=== PATIENT | male | born 1970 | race Caucasian/White ===

== ENCOUNTER 2017-06-19 13:21 | Emergency (ER) | payer BC ==
[~2017-06-19] VITALS: Ht 185.4 cm; Wt 110.0 kg
[~2017-06-19 13:21] MED LIST: ASPI1CPM9 PO; LISI40TA4 PO; ROSU20TA PO
[2017-06-19 14:50] VITALS: BP 144/106
[2017-06-19] MEDS ORDERED: LORazepam 1 MG tablet PO ONE (17:15)
[2017-06-19] MEDS ORDERED: CHLO1CAP PO (17:16)
== END 2017-06-19 17:28 | disposition home or self-care (01) ==
LOC: ER 13:22
DX: F10.239 Alcohol dependence with withdrawal, unspecified (principal); E78.00 Pure hypercholesterolemia, unspecified; I10 Essential (primary) hypertension; Z86.73 Personal history of transient ischemic attack (TIA), and cerebral infarction without residual deficits; Z88.8 Allergy status to other drugs, medicaments and biological substances; Z79.82 Long term (current) use of aspirin; Z79.899 Other long term (current) drug therapy; Y90.0 Blood alcohol level of less than 20 mg/100 ml
CPT/HCPCS: 99283

== ENCOUNTER 2020-09-30 20:43 | Emergency (ER) | payer BC, OTHER ==
[~2020-09-30] VITALS: Ht 185.4 cm; Wt 99.1 kg
[~2020-09-30 20:43] MED LIST changes: +CHLO1CAP PO; +LISI40TA13 PO; -LISI40TA4 PO; -ROSU20TA PO; +ROSU20TA2 PO
[2020-09-30 21:52] LABS: BASOPHILS % (AUTO) 0.8 % (0-1); EOSINOPHILS # (AUTO) 0.1 X10'3 (0-0.9); EOSINOPHILS % (AUTO) 1.3 % (0-6); HEMATOCRIT 45.2 % (42.0-52.0); HEMOGLOBIN 15.6 g/dl (14.0-17.9); LYMPHOCYTES # (AUTO) 1.3 X10'3 (1.1-4.8); LYMPHOCYTES % (AUTO) 21.6 % (21-51); MEAN CORPUSCULAR HEMOGLOBIN 29.2 PG (27.0-31.0); MEAN CORPUSCULAR HGB CONC 34.5 g/dL (33.0-36.5); MEAN CORPUSCULAR VOLUME 84.7 FL (78-98); MEAN PLATELET VOLUME 7.6 FL (7.4-10.4); MONOCYTES # (AUTO) 0.6 X10'3 (0-0.9); NEUTROPHILS # (AUTO) 3.9 X10'3 (1.8-7.7); NEUTROPHILS % (AUTO) 66.3 % (42-75); PLATELET COUNT 237 X10'3 (140-440); RED BLOOD COUNT 5.33 X10'6 (4.70-6.10); RED CELL DISTRIBUTION WIDTH 17.9 % (11.5-14.5); WHITE BLOOD COUNT 5.9 X10'3 (4.5-11.0)
[2020-09-30 22:00] LABS: ALANINE AMINOTRANSFERASE 54 U/L (12-78); ALBUMIN 3.5 G/DL (3.4-5.0); ALBUMIN/GLOBULIN RATIO 1.1 (1.1-1.5); ALKALINE PHOSPHATASE 61 IU/L (46-116); ANION GAP 7 (8-16); ASPARTATE AMINO TRANSFERASE 26 U/L (10-37); BILIRUBIN,TOTAL 0.4 MG/DL (0.1-1.0); BLOOD UREA NITROGEN 18 MG/DL (7-18); BUN/CREATININE RATIO 10.9 (5.4-32.0); CHLORIDE 104 MMOL/L (99-107); CREATININE 1.65 MG/DL (0.60-1.10); GLUCOSE 97 MG/DL (70-104); POTASSIUM 3.7 MMOL/L (3.5-5.1); SODIUM 138 MMOL/L (135-145); TOTAL CARBON DIOXIDE 26.9 MMOL/L (24-32); TOTAL PROTEIN 6.8 G/DL (6.4-8.2); eGFR 44 ML/MIN
[2020-09-30] MEDS ORDERED: LIDOcaine Viscous 15ml cup MM ONE (23:30)
[2020-09-30] MEDS ORDERED: mag hydrox/Alum hydrox/simeth 30ml oral suspension PO ONE (23:30)
[2020-09-30] MEDS ORDERED: ondansetron/PF 4mg/2ml inj IV ONE (23:30)
[2020-09-30] MEDS: pantoprazole 40 MG vial IV ONE (23:57)
[2020-10-01] MEDS ORDERED: pantoprazole 40 MG vial IV ONE (00:05)
[2020-10-01] MEDS: pantoprazole 40 MG vial IV ONE (00:06)
[2020-10-01] MEDS ORDERED: PANT-47 PO (00:09)
[2020-10-01 02:00] VITALS: BP 130/86
== END 2020-10-01 02:42 | disposition home or self-care (01) ==
LOC: ER 20:44
DX: K21.9 Gastro-esophageal reflux disease without esophagitis (principal); Z79.82 Long term (current) use of aspirin; Z79.899 Other long term (current) drug therapy; E78.00 Pure hypercholesterolemia, unspecified; I10 Essential (primary) hypertension; Z86.73 Personal history of transient ischemic attack (TIA), and cerebral infarction without residual deficits
CPT/HCPCS: 36415; 71045; 80053; 83880; 84484; 85025; 93005; 96374; 96375; 99285; C9113; J2405

== ENCOUNTER 2022-12-02 05:24 | Day surgery (SDC) | payer OTHER ==
[2022-11-27 15:38] LABS: BASOPHILS # (AUTO) 0.1 X10'3 (0-0.2); BASOPHILS % (AUTO) 0.8 % (0-1); EOSINOPHILS # (AUTO) 0.1 X10'3 (0-0.9); EOSINOPHILS % (AUTO) 1.4 % (0-6); LYMPHOCYTES # (AUTO) 1.9 X10'3 (1.1-4.8); MEAN CORPUSCULAR HEMOGLOBIN 30.7 PG (27.0-31.0); MEAN CORPUSCULAR HGB CONC 33.9 g/dL (33.0-36.5); MEAN CORPUSCULAR VOLUME 90.6 FL (78-98); MEAN PLATELET VOLUME 7.4 FL (7.4-10.4); MONOCYTES # (AUTO) 0.7 X10'3 (0-0.9); MONOCYTES % (AUTO) 9.7 % (2-12); NEUTROPHILS % (AUTO) 59.1 % (42-75); PRE OP HEMATOCRIT 43.3 % (42.0-52.0); PRE OP HEMOGLOBIN 14.7 g/dL (14.0-17.9); PRE OP PLATELET COUNT 229 X10'3 (140-440); PRE OP WHITE BLOOD COUNT 6.7 10'3 (4.8-10.8); RED BLOOD COUNT 4.78 X10'6 (4.70-6.10); RED CELL DISTRIBUTION WIDTH 13.3 % (11.5-14.5)
[2022-11-27 15:42] LABS: ALBUMIN 3.6 G/DL (3.4-5.0); ALKALINE PHOSPHATASE 76 IU/L (46-116); BLOOD UREA NITROGEN 26 MG/DL (7-18); BUN/CREATININE RATIO 19.7 (10.0-20.0); CALCIUM 9.6 MG/DL (8.5-10.1); CHLORIDE 104 MMOL/L (99-107); CREATININE 1.32 MG/DL (0.60-1.10); PRE OP ALT 43 U/L (30-65); PRE OP ANION GAP 10 (8-16); PRE OP AST 18 U/L (10-37); PRE OP BILIRUB, TOTAL 0.6 MG/DL (0.0-1.0); PRE OP GLUCOSE 104 MG/DL (70-104); PRE OP POTASSIUM 4.3 MMOL/L (3.4-5.1); PRE OP SODIUM 140 MMOL/L (135-145); TOTAL CARBON DIOXIDE 26.4 MMOL/L (24-32); TOTAL PROTEIN 7.2 G/DL (6.4-8.2); eGFR 57 ML/MIN
[~2022-12-02] VITALS: Ht 185.4 cm; Wt 94.6 kg
[2022-12-02] VITALS (9 sets, daily range): BP systolic 108–121; BP diastolic 66–87; PULSE 49–71; RESP 14–16; TEMP 97.9; O2SAT 97–100
[~2022-12-02 05:24] MED LIST changes: -ASPI1CPM9 PO; +ASPI81TA52 PO; -CHLO1CAP PO; +DABI150C PO; +LISI20TA28 PO; -LISI40TA13 PO; +PANT20TA18 PO; -ROSU20TA2 PO; +ringers solution, lacted 1,000 ML IV SCH
[2022-12-02] MEDS ORDERED: famotidine 20mg tablet PO ONE (05:30)
[2022-12-02] MEDS ORDERED: cefazolin 2gm/D5W 100mL 100 ML IV ONE (05:30)
[2022-12-02] MEDS ORDERED: BUPIVAcaine/PF 2.5 mg/ml (0.25%) 30ml vial IJ ONE (08:00)
[2022-12-02] MEDS ORDERED: bacitracin 15gm ointment TP ONE (08:01)
[2022-12-02] MEDS ORDERED: BUPIVAcaine/PF 2.5mg/ml (0.25%) 10ml vial ONE (08:01)
[2022-12-02] MEDS ORDERED: morphine 4 MG/ML inj SYRINge IV PRN (08:15)
[2022-12-02] MEDS ORDERED: labetalol 20mg/4ml (5mg/ml) syringe IV PRN (08:15)
[2022-12-02] MEDS ORDERED: morphine 2 MG/ML inj. syringe IV PRN (08:15)
[2022-12-02] MEDS ORDERED: acetaminophen 1,000mg/100ml IV 100 ML IV PRN (08:15)
[2022-12-02] MEDS ORDERED: proCHLORperazine 10 MG/2 ml inj IV PRN (08:15)
[2022-12-02] MEDS ORDERED: hydrALAZINE 20mg/ml inj. IV PRN (08:15)
[2022-12-02] MEDS ORDERED: meperidine/PF 25mg/ml syringe IV PRN ×3 (08:15)
[2022-12-02] MEDS ORDERED: ringers solution, lacted 1,000 ML IV SCH (08:15)
[2022-12-02] MEDS ORDERED: ondansetron/PF 4mg/2ml inj IV PRN (08:15)
[2022-12-02] MEDS ORDERED: sevoflurane 250ml liquid IH ONE (08:16)
[2022-12-02] MEDS ORDERED: midazolam 1 mg/ML 2ml injection ONE (08:19)
[2022-12-02] MEDS ORDERED: fentaNYL/PF 50MCG/1 ML 2ML syringe ONE (08:19)
[2022-12-02] MEDS ORDERED: propofol inj 20 ML IV ONE (08:32)
[2022-12-02] MEDS ORDERED: LIDOcaine 2% (20mg/ml) 5ml vial ONE (08:32)
[2022-12-02] MEDS ORDERED: dexamethasone sod phosphate 4mg/ml inj. ONE (08:33)
[2022-12-02] MEDS ORDERED: ondansetron/PF 4mg/2ml inj ONE (08:34)
--- NOTE | 2022-12-02 09:15 | NUR ---
Received from OR via BED, accompanied by Anesthesiologist and report given by Anesthesiologist ANGEL. PATIENT WAKING UP, NO S/S OF PAIN, V/S WNL, SCD ON, 20G TO RUE, ABDOMEN DRESSING CLEAN W/ NO S/S OF COMPLICATIONS AND BINDER IS ON.
--- NOTE | 2022-12-02 10:25 | NUR ---
PATIENT A&OX4, DENIES PAIN, V/S WNL, SCD OFF, 20G TO RUE D/C, ABDOMEN DRESSING CLEAN W/ NO S/S OF COMPLICATIONS AND BINDER IS ON. I HAVE REVIEWED D/C INSTRUCTIONS WITH PATIENT and they have verbalized understanding patient d/c home with all belongings and family gave transport home.
== END 2022-12-02 10:25 | disposition home or self-care (01) ==
LOC: PAS 05:24
PROVIDERS: ATTEND Surgery
DX: K43.6 Other and unspecified ventral hernia with obstruction, without gangrene (principal); M19.019 Primary osteoarthritis, unspecified shoulder; I25.10 Atherosclerotic heart disease of native coronary artery without angina pectoris; I25.2 Old myocardial infarction; Z87.891 Personal history of nicotine dependence; Z86.73 Personal history of transient ischemic attack (TIA), and cerebral infarction without residual deficits; Z98.890 Other specified postprocedural states; Z86.14 Personal history of Methicillin resistant Staphylococcus aureus infection; Z87.442 Personal history of urinary calculi; Z79.899 Other long term (current) drug therapy; Z79.82 Long term (current) use of aspirin
CPT/HCPCS: 36415; 49594; 80053; 82948; 85025; C1781; J0131; J0690; J1100; J2175; J2250; J2405; J2704; J3010; J3490; J7030; J7120; Z7506; Z7512; A4215; A4618; A6449; A7000